=== PATIENT | female | born 1990 | race Two or more races ===

== ENCOUNTER 2018-01-14 06:52 | Emergency (ER) | payer OTHER ==
[2018-01-14 07:07] VITALS: BMI 23.4
--- NOTE | 2018-01-14 07:39 | PDOC ---
History of Present Illness <Evy Sanchez - Last Filed: 01/14/18 11:42> - History of Present Illness Initial Comments: 01/14/18 09:05 The patient is a 27 year old Iranian speaking female with no significant PMHx of , who presents for lower abdominal pain and vaginal bleeding since yesterday. The patient also notes some nausea and vomiting. Her LMP was December 04. She states she took Tylenol with little relief. She denies fever chills, chest pain, shortness of breath. She denies headache. She denies any urinary complaints. <Marjorie Churchill - Last Filed: 01/14/18 12:05> - General Chief Complaint: Pain Stated Complaint: ABD PAIN Time Seen by Provider: 01/14/18 07:39 Past History - Past Medical History COPD: No - Suicide/Smoking/Psychosocial Hx Smoking History: Never smoked <Evy Sanchez - Last Filed: 01/14/18 11:42> <Marjorie Churchill - Last Filed: 01/14/18 12:05> - Past Medical History Allergies/Adverse Reactions: Allergies Allergy/AdvReac Type Severity Reaction Status Date / Time No Known Allergies Allergy Verified 01/14/18 07:05 Home Medications: Ambulatory Orders NK [No Known Home Medication] 01/14/18 Review of Systems - Review of Systems Comments:: GENERAL/CONSTITUTIONAL: No fever or chills. No weakness. HEAD, EYES, EARS, NOSE AND THROAT: No change in vision. No ear pain or discharge. No sore throat. CARDIOVASCULAR: No chest pain or shortness of breath. RESPIRATORY: No cough, wheezing, or hemoptysis. GASTROINTESTINAL: +lower abdominal pain, +nausea, +vomiting, no diarrhea or constipation. GYNECOLOGICAL: +vaginal bleeding GENITOURINARY: No dysuria, frequency, or change in urination. MUSCULOSKELETAL: No joint or muscle swelling or pain. No neck or back pain. SKIN: No rash NEUROLOGIC: No headache, vertigo, loss of consciousness, or change in strength/ sensation. ENDOCRINE: No increased thirst. No abnormal weight change. HEMATOLOGIC/LYMPHATIC: No anemia, easy bleeding, or history of blood clots. ALLERGIC/IMMUNOLOGIC: No hives or skin allergy. 01/14/18 09:06 <Marjorie Churchill - Last Filed: 01/14/18 12:05> *Physical Exam - Vital Signs Last Vital Signs Temp Pulse Resp BP Pulse Ox 97 F L 80 18 102/61 100 01/14/18 07:02 01/14/18 07:02 01/14/18 07:02 01/14/18 07:02 01/14/18 07:02 <Evy Sanchez - Last Filed: 01/14/18 11:42> - Vital Signs Last Vital Signs Temp Pulse Resp BP Pulse Ox 97 F L 80 18 102/61 100 01/14/18 07:02 01/14/18 07:02 01/14/18 07:02 01/14/18 07:02 01/14/18 07:02 - Physical Exam Comments: GENERAL: Awake, alert, and fully oriented, in no acute distress HEAD: No signs of trauma EYES: PERRLA, EOMI, sclera anicteric, conjunctiva clear LUNGS: Breath sounds equal, clear to auscultation bilaterally. No wheezes, and no crackles HEART: Regular rate and rhythm, normal S1 and S2, no murmurs, rubs or gallops ABDOMEN: Soft, non-distended, diffusely tender. No guarding, no rebound. No masses EXTREMITIES: Normal range of motion, no edema. No clubbing or cyanosis. No cords, erythema, or tenderness NEUROLOGICAL: Cranial nerves II through XII grossly intact. Normal speech, normal gait SKIN: Warm, Dry, normal turgor, no rashes or lesions noted. Pelvic exam: Trace blood in vaginal vault. Suprapubic and b/l adenexal tenderess , Closed OS. <Marjorie Churchill - Last Filed: 01/14/18 12:05> ED Treatment Course - LABORATORY CBC & Chemistry Diagram: 01/14/18 08:20 01/14/18 08:20 <Evy Sanchez - Last Filed: 01/14/18 11:42> - LABORATORY CBC & Chemistry Diagram: 01/14/18 08:20 01/14/18 08:20 - ADDITIONAL ORDERS Additional order review: Laboratory Results 01/14/18 07:35 Urine Color Ltyellow Urine Appearance Slcloudy Urine pH 8.0 Ur Specific [place] 1.019 Urine Protein Negative Urine Glucose (UA) Negative Urine Ketones Negative Urine Blood 3+ H Urine Nitrite Negative Urine Bilirubin Negative Urine Urobilinogen Negative Ur Leukocyte Esterase Negative Urine WBC (Auto) 8 Urine RBC (Auto) 4 Ur Epithelial Cells Moderate Urine Bacteria Few Hyaline Casts 1 Urine Mucus Rare Urine HCG, Qual Positive 01/14/18 08:20 RBC 3.73 MCV 93.6 MCHC 32.8 RDW 14.1 MPV 9.4 Neutrophils % 66.4 Lymphocytes % 19.7 Monocytes % 12.4 H Eosinophils % 1.0 Basophils % 0.5 - Medications Given in the ED: ED Medications Discontinued Medications Generic Name Dose Route Start Last Admin Trade Name Myranda PRN Reason Stop Dose Admin Ketorolac Tromethamine 30 mg 01/14/18 07:54 01/14/18 08:30 Toradol Injection - IVPUSH 01/14/18 07:55 Not Given ONCE ONE <Marjorie Churchill - Last Filed: 01/14/18 12:05> Medical Decision Making - Medical Decision Making 01/14/18 09:11 Pt presents to the ED complaining of vaginal bleeding and pelvic pain that began yesterday. Also complains of two episodes of nausea and vomiting. + lower abdominal tenderness and pelvic and adnexal tenderness on pelvic exam. positive U preg. the patient appears somewhat uncomfortable and I am quite concerned for ectopic. Will check stat pelvic US, quantiative BHCG, give pain control and reassess. 01/14/18 11:42 BHCG positive with B quant of 986. Patient extremely tender and uncomfortable on my initial exam. Official US shows no IUP, free fluid, R adnexal mass that has no flow and is inconsistent with ectopic as per radiology. BHCG 986. Case discussed with Dr. Camara, who has come to the ED to evaluate the patient. Patient is now much more comfortable and is desired. Dr. Camara feels it is safe for the patient to be discharged home and return to the ED for worsening symptoms. Patient will follow up in two days for repeat BHCG. Patient was instructed to return to the ED immediately for worsening pain, syncope, other new or worsening symptoms. 01/14/18 11:44 <Evy aSnchez - Last Filed: 01/14/18 11:42> *DC/Admit/Observation/Transfer - Discharge Dispostion Decision to Admit order: No <Evy Sanchez - Last Filed: 01/14/18 11:42> - Attestations Scribe Attestion: 01/14/18 09:09 Documentation prepared by Marjorie Churchill, acting as medical interpreter for Evy Sanchez MD. <Marjorie Churchill - Last Filed: 01/14/18 12:05> Diagnosis at time of Disposition: Threatened - Discharge Dispostion Disposition: HOME Condition at time of disposition: Good - Referrals Referrals: Isabel Shearer [Primary Care Provider] - Mily Morales MD [Staff Physician] - - Patient Instructions Printed Discharge Instructions: DI for Threatened Additional Instructions: Return immediately to the ED for severe abdominal pain, passing out, feeling lightheaded, other new or worsening symptoms. You may have a in the wrong place, which could cause severe bleeding. YOU MUST see Dr. Morales or return to the ED on Monday. Print Language: HONDURAN - Post Discharge Activity
[2018-01-14] MEDS ORDERED: KETOROLAC TROMETHAMINE 30 MG/1 ML VIAL IVPUSH ONE (07:54)
[2018-01-14 08:25] LABS: HCG,QUALITATIVE URINE POSITIVE
[2018-01-14 08:32] LABS: URINE APPEARANCE SLCLOUDY; URINE BILIRUBIN NEGATIVE (<2.0 mg/dL); URINE COLOR LTYELLOW; URINE GLUCOSE (UA) NEGATIVE (NEGATIVE); URINE KETONE NEGATIVE (NEGATIVE); URINE LEUK ESTERASE NEGATIVE (NEGATIVE); URINE NITRITE NEGATIVE (NEGATIVE); URINE PROTEIN NEGATIVE (NEGATIVE); URINE UROBILINOGEN NEGATIVE mg/dL (0.2-1.0)
[2018-01-14 08:43] LABS: EPI CELLS MODERATE /HPF (FEW); URINE BACTERIA FEW /hpf (NONE SEEN); URINE HYALINE CAST 1 /lpf; URINE MUCUS RARE
[2018-01-14 08:46] LABS: BASO % 0.5 % (0-2.0); HEMATOCRIT 34.9 % (32.4-45.2); HEMOGLOBIN 11.5 GM/dL (10.7-15.3); LYMPH % 19.7 % (8-40); MCH 30.7 pg (25.7-33.7); MCHC 32.8 g/dl (32.0-36.0); MEAN CELL VOLUME 93.6 fl (80-96); MEAN PLT VOLUME 9.4 fl (7.5-11.1); MONO % 12.4 % (3.8-10.2); NEUT % 66.4 % (42.8-82.8); PLATELET COUNT 218 K/MM3 (134-434); RBC 3.73 M/mm3 (3.60-5.2); RDW 14.1 % (11.6-15.6)
[2018-01-14] MEDS ORDERED: ACETAMINOPHEN INJECTION 100 ML IVPB ONE (09:01)
[2018-01-14 09:02] LABS: ALBUMIN 3.7 g/dl (3.4-5.0); ANION GAP 7 (8-16); BILIRUBIN,TOTAL 0.2 mg/dL (0.2-1.0); BLOOD UREA NITROGEN 10 mg/dL (7-18); CALCIUM 8.6 mg/dL (8.5-10.1); CHLORIDE 108 mmol/L (98-107); CO2 27 mmol/L (21-32); CREATININE 0.7 mg/dL (0.55-1.02); GLUCOSE,RANDOM 86 mg/dL (74-106); POTASSIUM 4.2 mmol/L (3.5-5.1); SGOT/AST 18 U/L (15-37); SGPT/ALT 21 U/L (12-78); SODIUM 142 mmol/L (136-145); TOT PROT 7.8 g/dl (6.4-8.2)
[2018-01-14 09:03] LABS: ALK PHOS 81 U/L (45-117)
[2018-01-14 11:04] VITALS: BP 95/61; PULSE 64; TEMP 98.4
--- NOTE | 2018-01-14 11:56 | CON.OBG ---
Consult Consult Specialty:: [employer] Referred by:: Dr. Sanchez Reason for Consultation:: Pelvic pain with chemical - History of Present Illness Chief Complaint: Pelvic pain History of Present Illness: 27 yo , LMP 11/24/17, presents to ER c/o lower abdominal pain. She admits to h/o ovarian cyst. Sonogram done and showed evidence of an adnexa mass. Bhcg is around 900mIU. is desired. - History Source History Provided By: Patient Limitations to Obtaining History: No Limitations - Past Medical History ...LMP: 11/24/17 ...: Yes ...: 1 ...Para: 0 Musculoskeletal: No: Chronic low back pain - Past Surgical History Past Surgical History: Yes: None - Alcohol/Substance Use Hx Alcohol Use: No History of Substance Use: reports: None - Smoking History Smoking history: Never smoked - Social History History of Recent Travel: No Home Medications - Allergies Allergies/Adverse Reactions: Allergies Allergy/AdvReac Type Severity Reaction Status Date / Time No Known Allergies Allergy Verified 01/14/18 07:05 - Home Medications Home Medications: Ambulatory Orders NK [No Known Home Medication] 01/14/18 Family Disease History - Family Disease History Family History: Unremarkable Review of Systems - Review of Systems Constitutional: reports: No Symptoms Eyes: reports: No Symptoms Neck: reports: No Symptoms Cardiovascular: reports: No Symptoms Respiratory: reports: No Symptoms Gastrointestinal: reports: No Symptoms Genitourinary: reports: Pain Neurological: reports: No Symptoms Hematology/Lymphatic: reports: No Symptoms Psychiatric: reports: No Symptoms Pain Intensity: 4 Physical Exam-[employer] Vital Signs: Vital Signs Temperature 98.4 F 01/14/18 11:03 Pulse Rate 64 01/14/18 11:03 Respiratory Rate 16 01/14/18 11:03 Blood Pressure 95/61 01/14/18 11:03 O2 Sat by Pulse Oximetry (%) 100 01/14/18 11:03 Constitutional: Yes: Well Nourished Eyes: Yes: WNL HENT: Yes: WNL Neck: Yes: WNL Respiratory: Yes: Regular Gastrointestinal: Yes: Normal Bowel Sounds Pelvis: Yes: Tenderness External Genitalia: Yes: Normal Vaginal Exam: Yes: Discharge (Pinkish) Cervix: Yes: Cerv Motion Tenderness Uterus: Yes: Normal Musculoskeletal: Yes: WNL Neurological: Yes: Alert, Oriented ...Motor Strength: WNL Psychiatric: Yes: Alert, Oriented Labs: CBC, BMP 01/14/18 08:20 01/14/18 08:20 Problem List - Problems (1) Chemical Code(s): O02.81 - INAPPROP CHG QUANTITAV HCG IN EARLY (2) Pelvic pain Code(s): R10.2 - PELVIC AND PERINEAL PAIN (3) Adnexal mass Code(s): N94.9 - UNSP COND ASSOC W FEMALE GENITAL ORGANS AND MENSTRUAL CYCLE Assessment/Plan Pelvic pain Chemical Adnexa mass R/O ectopic F/U in two days for repeat Bhcg Extensive discussion and counseling given to patient Return to ER if pain out of proportion
== END 2018-01-14 12:15 | disposition home or self-care (01) ==
LOC: JER 06:52
DX: O02.81 Inappropriate change in quantitative human chorionic gonadotropin (hCG) in early pregnancy (principal); R11.2 Nausea with vomiting, unspecified; R19.09 Other intra-abdominal and pelvic swelling, mass and lump; N94.89 Other specified conditions associated with female genital organs and menstrual cycle
CPT/HCPCS: 36415; 76817-TC; 80053; 81003; 81015; 84702; 84703; 85025; 86850; 86900; 86901; 99283-25

== ENCOUNTER 2018-01-21 14:49 | Emergency (ER) | payer OTHER ==
[2018-01-21 15:06] VITALS: BMI 19.3
--- NOTE | 2018-01-21 15:13 | PDOC ---
History of Present Illness - General Chief Complaint: Vaginal Bleeding Stated Complaint: VAGINAL BLEEING/ABD PAIN - History of Present Illness Initial Comments: 27 year old female with PMH of recent right sided tubal ectopic (s/p saplingectomy 4 days prior 01/17/18) presenting with vaginal bleeding, central pelvic pain, and left sided adnexal tenderness since the operation. Dr. Martinez performed the procedure on 01/17/18 without complication and the left ovary was noted to be fine. Patient states that her pain and bleeding have been gradually worsening since the procedure and she notes 3 soaked pads daily since the procedure along with some nausea. Denies fevers, chills, vomiting, lightheadedness, chest pain, diarrhea, rash, malodorous discharge, or other symptoms. 01/21/18 15:45 Past History - Past Medical History Allergies/Adverse Reactions: Allergies Allergy/AdvReac Type Severity Reaction Status Date / Time No Known Allergies Allergy Verified 01/21/18 15:06 Home Medications: Ambulatory Orders Ibuprofen [Motrin -] 600 mg PO QID #28 tablet 01/17/18 Ferrous Sulfate 325 mg PO BID #60 tablet 01/18/18 COPD: No - Reproductive History (#): 1 Para: 0 - Suicide/Smoking/Psychosocial Hx Smoking History: Never smoked Have you smoked in the past 12 months: No Information on smoking cessation initiated: No Hx Alcohol Use: No Drug/Substance Use Hx: No Substance Use Type: None Review of Systems - Review of Systems Constitutional: No: Chills, Diaphoresis, Fever, Loss of Appetite, Malaise, Unexplained wgt Loss Respiratory: No: Orthopnea, Shortness of Breath, SOB with Exertion Cardiac (ROS): No: Edema, Irregular Heart Rate ABD/GI: Yes: Nausea. No: Constipated, Rectal Bleeding, Vomiting : No: Dysuria, Discharge, Frequency, Flank Pain, Hematuria Musculoskeletal: No: Back Pain, Gout, Joint Pain, Joint Swelling Integumentary: No: Erythema, Flushing, Lesions, Lumps, Pallor Neurological: No: Headache, Numbness, Paresthesia, Pre-Existing Deficit Hematologic/Lymphatic: No: Anemia, Blood Clots, Easy Bleeding *Physical Exam - Vital Signs Last Vital Signs Temp Pulse Resp BP Pulse Ox 98.6 F 80 18 105/79 100 01/21/18 15:02 01/21/18 15:02 01/21/18 15:02 01/21/18 15:02 01/21/18 15:02 - Physical Exam General Appearance: Yes: Nourished, Appropriately Dressed. No: Apparent Distress HEENT: positive: EOMI, SHRADDHA, Normal ENT Inspection, Normal Voice Neck: positive: Trachea midline, Normal Thyroid, Supple. negative: Tender, Rigid Respiratory/Chest: positive: Lungs Clear, Normal Breath Sounds. negative: Chest Tender, Respiratory Distress, Accessory Muscle Use Cardiovascular: positive: Regular Rhythm, Regular Rate Female Pelvic Exam: positive: CMT. negative: normal external exam (Dark dried blood at vaginal opening. Slight blood pooling in the posterior vaginal vault without visualized cervix. Cervix palpated and closed. Left adnexal tendreenss and cervical motion tenderness but no right adnexal tenderss or fullness. ), normal adnexa Gastrointestinal/Abdominal: positive: Normal Bowel Sounds, Flat, Soft. negative : Tender Musculoskeletal: positive: Normal Inspection. negative: Decreased Range of Motion Extremity: positive: Normal Capillary Refill, Normal Inspection, Normal Range of Motion. negative: Tender Integumentary: positive: Normal Color, Dry, Warm Neurologic: positive: Fully Oriented, Alert, Normal Mood/Affect, Normal Response , Motor Strength 5/5 ED Treatment Course - LABORATORY CBC & Chemistry Diagram: 01/21/18 15:56 01/21/18 15:56 Medical Decision Making - Medical Decision Making 27 year old female with recent right saplingectomy presenting with vaginal bleeding and pelvic + left adnexal tenderness. Highest suspcicion for post op pain and/or regular menses.. However, slight chance of retained products/ new pathology in left ovary although surgical report pointed to a grossly normal left adnexa. 01/21/18 17:28 WBC improved from preop and other labs WNL. Ultrasound demonstrating debris in uterus consistent with initiation of menses. Will DC patient with return precautions and follow up instructions. 01/21/18 18:29 *DC/Admit/Observation/Transfer Diagnosis at time of Disposition: Vaginal bleeding - Discharge Dispostion Disposition: HOME Condition at time of disposition: Improved Decision to Admit order: No - Referrals Referrals: Isabel Shearer [Primary Care Provider] - Michael Martinez MD [Staff Physician] - - Patient Instructions Additional Instructions: Silva sangrado vaginal y clicos probablemente provengan de silva operacin reciente y posiblemente de silva menstruacin. Por favor, siga con el Dr. Manzanon dentro de bennett semana. Debera mejorar en los prximos hayes. Por favor regrese al ED si tiene algn problema de empeoramiento. - Post Discharge Activity
[2018-01-21] MEDS ORDERED: MORPHINE SULFATE 2 MG/ML VIAL IVPUSH ONE (15:47)
[2018-01-21] MEDS ORDERED: MORPHINE SULFATE 2 MG/ML VIAL ONE (15:57)
[2018-01-21 16:09] LABS: BASO % 0.3 % (0-2.0); EOS % 0.9 % (0-4.5); HEMATOCRIT 30.3 % (32.4-45.2); LYMPH % 15.9 % (8-40); MCH 30.9 pg (25.7-33.7); MEAN CELL VOLUME 93.5 fl (80-96); MEAN PLT VOLUME 7.9 fl (7.5-11.1); MONO % 6.8 % (3.8-10.2); NEUT % 76.1 % (42.8-82.8); PLATELET COUNT 275 K/MM3 (134-434); RBC 3.24 M/mm3 (3.60-5.2); RDW 14.1 % (11.6-15.6); WHITE BLOOD COUNT 12.4 K/mm3 (4.0-10.0)
[2018-01-21 16:26] LABS: ALBUMIN 3.6 g/dl (3.4-5.0); ANION GAP 7 (8-16); BILIRUBIN,TOTAL 0.3 mg/dL (0.2-1.0); BLOOD UREA NITROGEN 10 mg/dL (7-18); CALCIUM 8.4 mg/dL (8.5-10.1); CHLORIDE 107 mmol/L (98-107); CO2 26 mmol/L (21-32); CREATININE 0.7 mg/dL (0.55-1.02); GLUCOSE,RANDOM 82 mg/dL (74-106); POTASSIUM 4.5 mmol/L (3.5-5.1); SGOT/AST 17 U/L (15-37); SGPT/ALT 19 U/L (12-78); SODIUM 140 mmol/L (136-145); TOT PROT 7.5 g/dl (6.4-8.2)
[2018-01-21 16:29] LABS: ALK PHOS 73 U/L (45-117)
[2018-01-21 16:58] LABS: URINE APPEARANCE CLEAR; URINE BILIRUBIN NEGATIVE (<2.0 mg/dL); URINE COLOR STRAW; URINE GLUCOSE (UA) NEGATIVE (NEGATIVE); URINE KETONE NEGATIVE (NEGATIVE); URINE LEUK ESTERASE NEGATIVE (NEGATIVE); URINE NITRITE NEGATIVE (NEGATIVE); URINE PROTEIN NEGATIVE (NEGATIVE); URINE UROBILINOGEN NEGATIVE mg/dL (0.2-1.0)
[2018-01-21 17:01] LABS: EPI CELLS RARE /HPF (FEW)
--- NOTE | 2018-01-21 17:30 | PDOC ---
Attending Attestation - Resident Resident Name: Randy Kaye - ED Attending Attestation I have performed the following: I have examined & evaluated the patient, The case was reviewed & discussed with the resident, I agree w/resident's findings & plan, Exceptions are as noted - HPI HPI: 01/21/18 17:29 The patient is a 27 year old female, with a significant PMH of recent right sided tubal ectopic (salpingectomy 4 days prior 01/17/18), who presents to the emergency department with vaginal bleeding, central pelvic pain and left sided adnexal tenderness since her operation. Patient notes the use of 3 soaked pads daily since the procedure accompanied with some nausea. Patient states pain and bleeding have progressively worsened since the procedure. The patient denies chest pain, shortness of breath, headache and dizziness. Denies fever, chills, nausea, vomit, diarrhea and constipation. Denies dysuria, frequency and urgency Allergies: NKDA Past surgical history: Salpingectomy Social history: None reported PCP: Isabel Shearer - Physicial Exam PE: 01/21/18 18:38 agree with resident exam - Medical Decision Making 01/21/18 16:38 27yo F s/p ectopic resection 2 days ago presents to the ED with vaginal bleeding and L pelvic pain. VItals wnl. Case discussed with Dr. Valdez by Dr. Kaye, who recommends TVUS but states sxs likely expected in post op period. If US with no acute pathology, pt can be DC to f/u outpt
--- NOTE | 2018-01-21 17:53 | PDOC ---
*Physical Exam - Vital Signs Last Vital Signs Temp Pulse Resp BP Pulse Ox 98.6 F 80 18 105/79 100 01/21/18 15:02 01/21/18 15:02 01/21/18 15:02 01/21/18 15:02 01/21/18 15:02 ED Treatment Course - LABORATORY CBC & Chemistry Diagram: 01/21/18 15:56 01/21/18 15:56 - ADDITIONAL ORDERS Additional order review: Laboratory Results 01/21/18 01/21/18 01/21/18 16:54 15:56 15:56 Sodium 140 Potassium 4.5 Chloride 107 Carbon Dioxide 26 Anion Gap 7 L BUN 10 Creatinine 0.7 Creat Clearance w eGFR > 60 Random Glucose 82 Calcium 8.4 L Total Bilirubin 0.3 AST 17 ALT 19 Alkaline Phosphatase 73 Total Protein 7.5 Albumin 3.6 Beta HCG, Quant 928.7 Urine Color Straw Urine Appearance Clear Urine pH 8.0 D Ur Specific [place] 1.010 Urine Protein Negative Urine Glucose (UA) Negative Urine Ketones Negative Urine Blood 3+ H Urine Nitrite Negative Urine Bilirubin Negative Urine Urobilinogen Negative Ur Leukocyte Esterase Negative Urine WBC (Auto) 8 Urine RBC (Auto) 103 Ur Epithelial Cells Rare Blood Type O POSITIVE Antibody Screen Negative 01/21/18 15:56 RBC 3.24 L MCV 93.5 MCHC 33.0 RDW 14.1 MPV 7.9 Neutrophils % 76.1 D Lymphocytes % 15.9 D Monocytes % 6.8 Eosinophils % 0.9 Basophils % 0.3 - Medications Given in the ED: ED Medications Discontinued Medications Generic Name Dose Route Start Last Admin Trade Name Freq PRN Reason Stop Dose Admin Morphine Sulfate 2 mg 01/21/18 15:47 01/21/18 16:01 Morphine Sulfate IVPUSH 01/21/18 15:48 2 mg ONCE ONE Administration Medical Decision Making - Medical Decision Making 01/21/18 17:51signed out by Dr Ewing to follow ultrasound pt had ectopic preg removed by Dr Martinez last week and p/w left sided adnexal pain 01/21/18 18:27 pelvic US c/s menstrual cycle plan follow up with Dr Kelley *DC/Admit/Observation/Transfer Diagnosis at time of Disposition: Vaginal bleeding - Discharge Dispostion Disposition: HOME Condition at time of disposition: Improved - Referrals Referrals: Michael Martinez MD [Staff Physician] - Tayo Sheareria A [Primary Care Provider] - - Patient Instructions Additional Instructions: Silva sangrado vaginal y clicos probablemente provengan de silva operacin reciente y posiblemente de silva menstruacin. Por favor, siga con el Dr. Manzanon dentro de bennett semana. Debera mejorar en los prximos hayes. Por favor regrese al ED si tiene algn problema de empeoramiento. - Post Discharge Activity
[2018-01-21 18:53] VITALS: BP 108/76; PULSE 72; TEMP 98.1
== END 2018-01-21 18:54 | disposition home or self-care (01) ==
LOC: JER 14:49
PROC: 3E033NZ Introduction of Analgesics, Hypnotics, Sedatives into Peripheral Vein, Percutaneous Approach (ICD-10-PCS; principal; 2018-01-21)
DX: N99.820 Postprocedural hemorrhage of a genitourinary system organ or structure following a genitourinary system procedure (principal); N92.0 Excessive and frequent menstruation with regular cycle
CPT/HCPCS: 36415; 76830-TC; 80053; 81003; 81015; 84702; 85025; 86850; 86900; 86901; 87491; 87591; 96374; 99283-25

== ENCOUNTER → 2018-12-13 | Day surgery (SDC) | payer OTHER | END | disposition home or self-care (01) | LOC: EDSTATUS 10:00 → JRAD 11:22 → JRADUS-SUR 11:22 | PROVIDERS: ATTEND Student in an Organized Health Care Education/Training Program | PROC: BU18YZZ Fluoroscopy of Uterus and Fallopian Tubes using Other Contrast (ICD-10-PCS; principal; 2018-12-13) | DX: N97.9 Female infertility, unspecified (principal) | CPT/HCPCS: 58340; 74740-TC-FY; 76000-TC-FY; 84703 ==

== ENCOUNTER 2018-12-21 15:59 | Emergency (ER) | payer OTHER | END 2018-12-21 19:00 | disposition home or self-care (01) | LOC: JERFT 15:59 ==

== ENCOUNTER 2018-12-24 20:11 | Emergency (ER) | payer OTHER ==
--- NOTE | 2018-12-24 21:08 | PDOC ---
Rapid Medical Evaluation Time Seen by Provider: 12/24/18 21:05 Medical Evaluation: Allergies Allergy/AdvReac Type Severity Reaction Status Date / Time No Known Allergies Allergy Verified 12/21/18 16:38 12/24/18 21:05 This patient had brief in-person evaluation in triage cc: rabies vaccine day 3 denies fever or chills, states wound looks better than before PE: NAD unlabored breathing limping, tenderness of left thigh orders: rabies vaccine This patient will proceed to the Ed for further evaluation Discharge Disposition - Diagnosis Rabies, need for prophylactic vaccination against - Referrals - Patient Instructions - Post Discharge Activity
[2018-12-24 21:09] VITALS: BP 103/66; PULSE 75; TEMP 98.3; BMI 25.0
[2018-12-24] MEDS ORDERED: RABIES VACCINE (PCEC)/PF 2.5 UNIT/VIAL IM ONE ×2 (21:12→21:29)
--- NOTE | 2018-12-24 21:14 | PDOC ---
History of Present Illness - General Chief Complaint: Revisit,Rabies Injection Stated Complaint: RETURN FOR SHOT Time Seen by Provider: 12/24/18 21:05 History Source: Patient Exam Limitations: No Limitations - History of Present Illness Initial Comments: 12/24/18 21:09 28 year old female s/p bitten on left thigh by a dog, seen 3 days ago, here for day 3 of vaccine. Patient reports no fever or chills Timing/Duration: reports: other (3 days) Location: reports: extremities Respiratory Risk Factors: reports: no cause identified Associated Symptoms: reports: denies symptoms Past History - Travel Traveled outside of the country in the last 30 days: No Close contact w/someone who was outside of country & ill: No - Past Medical History Allergies/Adverse Reactions: Allergies Allergy/AdvReac Type Severity Reaction Status Date / Time No Known Allergies Allergy Verified 12/24/18 21:09 Home Medications: Ambulatory Orders Amoxicillin - [Amoxicillin 500mg Capsule -] 500 mg PO BID #14 capsule 03/21/18 Amoxicillin/Potassium Clav [Augmentin 875-125 Tablet] 1 each PO BID #14 tablet 12/21/18 COPD: No - Reproductive History (#): 1 Para: 0 - Suicide/Smoking/Psychosocial Hx Smoking History: Never smoked Have you smoked in the past 12 months: No Information on smoking cessation initiated: No Hx Alcohol Use: No Drug/Substance Use Hx: No Substance Use Type: None Review of Systems - Review of Systems Able to Perform ROS?: Yes Is the patient limited Mauritanian proficient: No Constitutional: No: Chills, Fever HEENTM: No: Ear Pain, Nose Congestion, Throat Pain, Dental Problems ABD/GI: No: Difficulty Swallowing, Nausea, Vomiting, Indigestion : No: Burning, Dysuria, Discharge, Testicular Swelling Musculoskeletal: No: Back Pain, Muscle Weakness Integumentary: Yes: Bruising, Erythema Neurological: No: Numbness, Tingling, Dizziness *Physical Exam - Vital Signs Last Vital Signs Temp Pulse Resp BP Pulse Ox 98.3 F 75 16 103/66 100 12/24/18 21:06 12/24/18 21:06 12/24/18 21:06 12/24/18 21:06 12/24/18 21:06 - Physical Exam General Appearance: Yes: Nourished, Appropriately Dressed. No: Apparent Distress HEENT: positive: TMs Normal, Pharynx Normal Neck: positive: Supple. negative: Lymphadenopathy (R), Lymphadenopathy (L) Respiratory/Chest: positive: Lungs Clear, Normal Breath Sounds Cardiovascular: positive: Regular Rhythm, Regular Rate Extremity: positive: Normal Capillary Refill, Erythema, Inflammation (of left thigh) Neurologic: positive: Fully Oriented, Alert Medical Decision Making - Medical Decision Making 12/24/18 21:11 28 year old female here for day 3 of rabies vaccine rabies vaccine *DC/Admit/Observation/Transfer Diagnosis at time of Disposition: Rabies, need for prophylactic vaccination against - Discharge Dispostion Disposition: HOME Condition at time of disposition: Good Decision to Admit order: No - Referrals - Patient Instructions Printed Discharge Instructions: DI for Rabies Vaccine Additional Instructions: Teja gallardo [facility] You may take ibuprofen 600 mg every 6 hours for pain You will need 2 more rabies vaccine. Please return in 4 day(12/28/18) for the next rabies vaccine. Continue to take Augmentin, antibiotics as prescribed. Return to emergency Department for fever chills or if symptoms worsens. Print Language: HONG KONGER - Post Discharge Activity Forms/Work/School Notes: Back to Work
== END 2018-12-24 21:42 | disposition home or self-care (01) ==
LOC: JERFT 20:11
PROC: 3E0234Z Introduction of Serum, Toxoid and Vaccine into Muscle, Percutaneous Approach (ICD-10-PCS; principal; 2018-12-24)
DX: Z20.3 Contact with and (suspected) exposure to rabies (principal)
CPT/HCPCS: 90471; 90675; 99281-25

== ENCOUNTER 2018-12-28 11:29 | Emergency (ER) | payer OTHER ==
[2018-12-28 11:38] VITALS: BP 105/69; PULSE 79; TEMP 98.2; BMI 25.0
--- NOTE | 2018-12-28 11:41 | PDOC ---
History of Present Illness - General Chief Complaint: Revisit,Rabies Injection Stated Complaint: F/U // RABIES SHOT Time Seen by Provider: 12/28/18 11:39 - History of Present Illness Initial Comments: 12/28/18 12:00 28 years old status post dog bite on routine patient met criteria for rabies vaccine rabies immunoglobulin and Augmentin Here for third shot of rabies vaccine Past History - Past Medical History Allergies/Adverse Reactions: Allergies Allergy/AdvReac Type Severity Reaction Status Date / Time No Known Allergies Allergy Verified 12/24/18 21:09 Home Medications: Ambulatory Orders Amoxicillin - [Amoxicillin 500mg Capsule -] 500 mg PO BID #14 capsule 03/21/18 Amoxicillin/Potassium Clav [Augmentin 875-125 Tablet] 1 each PO BID #14 tablet 12/21/18 COPD: No - Reproductive History (#): 1 Para: 0 - Suicide/Smoking/Psychosocial Hx Smoking History: Never smoked Have you smoked in the past 12 months: No Hx Alcohol Use: No Drug/Substance Use Hx: No Substance Use Type: None Review of Systems - Review of Systems Comments:: 12/28/18 12:28 ROS: A complete review of 10 out of 10 review of systems is taken and is negative apart from what is previously mentioned below and in the HPI. *Physical Exam - Vital Signs Last Vital Signs Temp Pulse Resp BP Pulse Ox 98.2 F 79 14 105/69 99 12/28/18 11:36 12/28/18 11:36 12/28/18 11:36 12/28/18 11:36 12/28/18 11:36 *DC/Admit/Observation/Transfer Diagnosis at time of Disposition: Rabies, need for prophylactic vaccination against - Discharge Dispostion Disposition: HOME Condition at time of disposition: Fair Decision to Admit order: No - Referrals Referrals: Isabel Shearer [Primary Care Provider] - - Patient Instructions Printed Discharge Instructions: DI for Rabies Vaccine Additional Instructions: Return to the ED on January 04 for your final rabies vaccine continue the Augmentin as prescribed. Keep a close eye on the dog bite apply bacitracin twice a day return to the ED immediately if it becomes red swollen hot signs of infection or for any concerns. - Post Discharge Activity
[2018-12-28] MEDS ORDERED: RABIES VACCINE (PCEC)/PF 2.5 UNIT/VIAL IM ONE ×2 (11:46→12:10)
== END 2018-12-28 12:43 | disposition home or self-care (01) ==
LOC: JERFT 11:29
PROC: 3E0234Z Introduction of Serum, Toxoid and Vaccine into Muscle, Percutaneous Approach (ICD-10-PCS; principal; 2018-12-28)
DX: Z20.3 Contact with and (suspected) exposure to rabies (principal)
CPT/HCPCS: 90675; 99281-25

== ENCOUNTER 2019-01-04 13:24 | Emergency (ER) | payer OTHER ==
[2019-01-04 13:36] VITALS: BP 121/75; PULSE 75; TEMP 97; BMI 20.9
[2019-01-04] MEDS ORDERED: RABIES VACCINE (PCEC)/PF 2.5 UNIT/VIAL IM ONE ×2 (13:41→13:48)
--- NOTE | 2019-01-04 13:41 | PDOC ---
Rapid Medical Evaluation Chief Complaint: Revisit,Rabies Injection Time Seen by Provider: 01/04/19 13:39 Medical Evaluation: Allergies Allergy/AdvReac Type Severity Reaction Status Date / Time No Known Allergies Allergy Verified 01/04/19 13:36 Vital Signs Temp Pulse Resp BP Pulse Ox 97.0 F L 75 16 121/75 100 01/04/19 13:33 01/04/19 13:33 01/04/19 13:33 01/04/19 13:33 01/04/19 13:33 01/04/19 13:40 I have performed a brief in-person evaluation of this patient. The patient presents with a chief complaint of: rabies vaccine Pertinent physical exam findings:stable and in NAD, non-focal I have ordered the following: rabies vaccine The patient will proceed to the ED for further evaluation.
--- NOTE | 2019-01-04 14:13 | PDOC ---
History of Present Illness - General Chief Complaint: Revisit,Rabies Injection Stated Complaint: RABIES VACCINE Time Seen by Provider: 01/04/19 13:39 History Source: Patient Exam Limitations: No Limitations - History of Present Illness Initial Comments: 01/04/19 14:14 28-year-old female with significant past medical history presenting for a rabies vaccine, patient sustained a dog bite 2 weeks ago with a course of Augmentin and has had 3 prior rabies vaccinations. The patient has no complaints states that her legs feeling better no CVA, chills, excessive thirst , redness from the wound or other concerns. ROS: General: denies fever/chills Abd: denies n/v SkinL Denies redness/swelling/increased pain Exam: Skin: wound on thigh is healing well without any erythema/induration/fluctuance or discharge Pt given final Rabies vaccine will dc wiht pmd fu Past History - Past Medical History Allergies/Adverse Reactions: Allergies Allergy/AdvReac Type Severity Reaction Status Date / Time No Known Allergies Allergy Verified 01/04/19 13:36 Home Medications: Ambulatory Orders Amoxicillin - [Amoxicillin 500mg Capsule -] 500 mg PO BID #14 capsule 03/21/18 Amoxicillin/Potassium Clav [Augmentin 875-125 Tablet] 1 each PO BID #14 tablet 12/21/18 COPD: No - Reproductive History (#): 1 Para: 0 - Suicide/Smoking/Psychosocial Hx Smoking History: Never smoked Have you smoked in the past 12 months: No Information on smoking cessation initiated: No Hx Alcohol Use: No Drug/Substance Use Hx: No Substance Use Type: None *Physical Exam - Vital Signs Last Vital Signs Temp Pulse Resp BP Pulse Ox 97.0 F L 75 16 121/75 100 01/04/19 13:33 01/04/19 13:33 01/04/19 13:33 01/04/19 13:33 01/04/19 13:33 ED Treatment Course - Medications Given in the ED: ED Medications Discontinued Medications Generic Name Dose Route Start Last Admin Trade Name Freq PRN Reason Stop Dose Admin Rabies Vaccine 2.5 unit 01/04/19 13:41 01/04/19 13:52 Rabavert Rabies Vaccine IM 01/04/19 13:42 2.5 unit .ONCE ONE Administration *DC/Admit/Observation/Transfer Diagnosis at time of Disposition: Need for rabies vaccination - Discharge Dispostion Disposition: HOME Condition at time of disposition: Improved Decision to Admit order: No - Referrals Referrals: [facility] [place] [Provider Group] - Patient Instructions Printed Discharge Instructions: DI for Rabies Vaccine Additional Instructions: Return to the emergency department immediately with ANY new, persistent or worsening symptoms including any redness on your wound or other concerns. Regrese al departamento de emergencias de inmediato con CUALQUIER sntoma nuevo , persistente o que empeore, incluido enrojecimiento de la herida u otras inquietudes. Print Language: MALDIVIAN - Post Discharge Activity
== END 2019-01-04 14:16 | disposition home or self-care (01) ==
LOC: JERFT 13:24
PROC: 3E0234Z Introduction of Serum, Toxoid and Vaccine into Muscle, Percutaneous Approach (ICD-10-PCS; principal; 2019-01-04)
DX: Z20.3 Contact with and (suspected) exposure to rabies (principal)
CPT/HCPCS: 90471; 90675; 99281-25

== ENCOUNTER 2020-03-22 13:39 | Emergency (ER) | payer OTHER ==
[2020-03-22 13:53] VITALS: BP 109/68; PULSE 71; TEMP 97.4; BMI 23.6
--- NOTE | 2020-03-22 14:20 | PDOC ---
History of Present Illness - General Chief Complaint: Pain Stated Complaint: LT. ARM PAIN Time Seen by Provider: 03/22/20 14:07 History Source: Patient Exam Limitations: No Limitations (L pectoral muscle pain radiating to arm X 1 day, denies trauma, pain only when she palpates) - History of Present Illness Associated Symptoms: denies: chest pain, fever/chills, headaches, loss of appetite, malaise, nausea/vomiting, shortness of breath, weakness Past History - Travel History Traveled outside of the country in the last 30 days: No - Medical History Allergies/Adverse Reactions: Allergies Allergy/AdvReac Type Severity Reaction Status Date / Time No Known Allergies Allergy Verified 03/22/20 13:53 Home Medications: Ambulatory Orders Amoxicillin - [Amoxicillin 500mg Capsule -] 500 mg PO BID #14 capsule 03/21/18 Amoxicillin/Potassium Clav [Augmentin 875-125 Tablet] 1 each PO BID #14 tablet 12/21/18 COPD: No - Reproductive History Is Patient Now?: No (#): 1 Para: 0 - Psycho-Social/Smoking History Smoking History: Never smoked Have you smoked in the past 12 months: No - Substance Abuse Hx (Audit-C & DAST Scrn) How often the patient has a drink containing alcohol: Never Score: In Men: 4 or > Positive; In Women: 3 or > Positive: 0 Screen Result (Pos requires Nsg. Audit-10AR): Negative Review of Systems - Review of Systems Constitutional: No: Chills, Fever Respiratory: No: Orthopnea, Shortness of Breath, SOB with Exertion, SOB at Rest, Wheezing, Productive cough Cardiac (ROS): No: Chest Pain, Edema, Irregular Heart Rate, Lightheadedness, Palpitations, Syncope, Chest Tightness ABD/GI: No: Nausea, Vomiting Musculoskeletal: Yes: Muscle Pain. No: Joint Pain, Muscle Weakness, Neck Pain, Joint Stiffness Neurological: No: Headache, Numbness, Tingling, Tremors, Weakness, Dizziness *Physical Exam - Vital Signs Last Vital Signs Temp Pulse Resp BP Pulse Ox 97.4 F L 71 18 109/68 99 03/22/20 13:51 03/22/20 13:51 03/22/20 13:51 03/22/20 13:51 03/22/20 13:51 - Physical Exam General Appearance: Yes: Nourished HEENT: positive: EOMI, SHRADDHA Neck: positive: Supple Respiratory/Chest: positive: Lungs Clear, Normal Breath Sounds Cardiovascular: positive: Regular Rhythm, Regular Rate, S1, S2 Musculoskeletal: positive: Normal Inspection, Other (tenderness on palpation over left pectoral muscle, no rash) Integumentary: positive: Normal Color Neurologic: positive: rotary shear cutter II-XII NML intact, Fully Oriented, Alert, Normal Mood/Affect, Normal Response, Motor Strength 5/5 Medical Decision Making - Medical Decision Making 29y/o F no prior medical history with muscle tenderness over left pectoral muscl e when she lift her arm up since yesterday denies cough, rash, SOB, CP, arm weakness, n/v 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 Vital signs stable. Exam consist of tenderness when palpation of left pectoral muscle. There is no rash. Range of motion was intact in bilateral upper extremity credit verification clerk strength is intact. EKG there is no acute ST T wave findings. Patient given Motrin. Diagnoses most more musculoskeletal pain. Patient advised to stretch take ibuprofen as needed for pain. She was advised to return to the emergency room if pain persists or worsening symptoms is accompanied. Discharge - Discharge Information Problems reviewed: Yes Clinical Impression/Diagnosis: Chest wall pain Condition: Stable Disposition: HOME - Admission No - Additional Discharge Information Prescription Drug Monitoring Program (I-STOP) results: I-STOP not reviewed - Follow up/Referral Referrals: René Mahajan MD [Primary Care Provider] - - Patient Discharge Instructions Patient Printed Discharge Instructions: DI for Costochondritis Additional Instructions: Your exam today in the emergency room was consistent with musculoskeletal pain in the chest wall. You may take Motrin or Tylenol for the pain. Stretch muscle after heavy lifting. Your EKG did not show any acute findings. You may follow-up with your primary care doctor. Return to the emergency room if worsening symptoms occur. - Post Discharge Activity
[2020-03-22] MEDS ORDERED: IBUPROFEN 600 MG TABLET (FP) PO ONE ×2 (14:47→14:48)
--- NOTE | 2020-03-23 10:43 | EKG ---
Test Reason : Blood Pressure : / mmHG Vent. Rate : 056 BPM Atrial Rate : 056 BPM P-R Int : 132 ms QRS Dur : 084 ms QT Int : 406 ms P-R-T Axes : 031 046 019 degrees QTc Int : 391 ms SINUS BRADYCARDIA OTHERWISE NORMAL ECG NO PREVIOUS ECGS AVAILABLE Confirmed by OCTAVIANO KRAUS MD ([id number]) on 03/23/2020 10:43:17 AM Referred By: Confirmed By:OCTAVIANO KRAUS MD
--- NOTE | 2020-03-24 14:05 | EKG ---
Test Reason : Blood Pressure : / mmHG Vent. Rate : 056 BPM Atrial Rate : 056 BPM P-R Int : 132 ms QRS Dur : 084 ms QT Int : 406 ms P-R-T Axes : 031 046 019 degrees QTc Int : 391 ms SINUS BRADYCARDIA OTHERWISE NORMAL ECG NO PREVIOUS ECGS AVAILABLE Confirmed by Chilango Werner MD ([id number]) on 03/24/2020 2:05:04 PM Referred By: Confirmed By:Chilango Werner MD
== END 2020-03-22 15:09 | disposition home or self-care (01) ==
LOC: JERFT 13:39
DX: R07.9 Chest pain, unspecified (principal)
CPT/HCPCS: 93005; 93010; 99283-25

== ENCOUNTER 2020-04-27 15:27 | Emergency (ER) | payer OTHER ==
[2020-04-27 15:49] VITALS: BP 116/73; PULSE 74; TEMP 98.1; BMI 23.3
--- NOTE | 2020-04-27 15:50 | PDOC ---
Rapid Medical Evaluation Time Seen by Provider: 04/27/20 15:47 Medical Evaluation: Allergies Allergy/AdvReac Type Severity Reaction Status Date / Time No Known Allergies Allergy Verified 04/27/20 15:47 04/27/20 15:47 I have performed a brief in-person evaluation of this patient. The patient presents with a chief complaint of: ? vaginal swelling x 2 days Pertinent physical exam findings:stable, well wanda I have ordered the following:nothing The patient will proceed to the ED for further evaluation. Discharge Disposition - Diagnosis Swelling of vagina - Referrals - Patient Instructions - Post Discharge Activity
--- OUTSIDE RECORDS SUMMARY | 2020-04-27 15:59 | XMS ---
:1990 Author Organization [facility] Care Team Providers Name Role Phone Dary Leon MD Unavailable Unavailable Charley Leon MD Unavailable Unavailable Charley Leon MD Unavailable Unavailable Charley Leon MD Unavailable Unavailable Charley Leon MD Unavailable Unavailable Charley Leon MD Unavailable Unavailable Charley Leon MD Unavailable Unavailable Charley Leon MD Unavailable Unavailable Charley Leon MD Unavailable Unavailable Charley Leon MD Unavailable Unavailable Charley Leon MD Unavailable Unavailable Charley Leon MD Unavailable Unavailable Charley Leon MD Unavailable Unavailable Charley Leon MD Unavailable Unavailable Charley Leon MD Unavailable Unavailable Re-disclosure Warning The records that you are about to access may contain information from federally- assisted alcohol or drug abuse programs. If such information is present, then the following federally mandated warning applies: This information has been disclosed to you from records protected by federal confidentiality rules (42 CFR part 2). The federal rules prohibit you from making any further disclosure of this information unless further disclosure is expressly permitted by the written consent of the person to whom it pertains or as otherwise permitted by 42 CFR part 2. A general authorization for the release of medical or other information is NOT sufficient for this purpose. The Federal rules restrict any use of the information to criminally investigate or prosecute any alcohol or drug abuse patient.The records that you are about to access may contain highly sensitive health information, the redisclosure of which is protected by Article 27-F of the [facility] Public Health law. If you continue you may haveaccess to information: Regarding HIV / AIDS; Provided by facilities licensed or operated by the [facility] Office of Mental Health; or Provided by the [facility] Office for People With Developmental Disabilities. If such information is present, then the following [facility] mandated warning applies: This information has been disclosed to you from confidential records which are protected by state law. State law prohibits you from making any further disclosure of this information without the specific written consent of the person to whom it pertains, or as otherwise permitted by law. Any unauthorized further disclosure in violation of state law may result in a fine or fci sentence or both. A general authorization for the release of medical or other information is NOT sufficient authorization for further disclosure. Encounters Encounter Providers Location Date Indications Data Source(s ) Attender: [facility] 05/27/2019 ALVAREZ [place] ([facility] 02:36:00 PM [facility] EST - Center) 05/27/2019 02:36:00 PM EST Outpatient [facility] 05/09/2019 eCW3 ([facility] 12:[facility]:00 [facility]) 05/09/2019 12:00:00 AM EDT Outpatient [facility] 04/15/2019 eCW3 ([facility] 12:00:00 [facility] - [facility]) 04/15/2019 12:00:00 AM EDT Outpatient [facility] 03/12/2019 eCW3 ([facility] 12:00:00 [facility] - [facility]) 03/12/2019 12:00:00 AM EDT Immunizations Vaccine Date Status Description Data Source(s) New in 2011. IIV4 04/15/2019 02:09:00 completed eC W3 ([facility]) New in 2011. IIV4 04/15/2019 02:09:00 completed [facility] Medications Medication Brand Start Product Dose Route Administrative Pharmacy [facility] Indications Reaction Description Data Name Date Form Instructions Instructions Source(s) Clomiphene ClomiP .0 active ClomiPHE NE eCW3 Citrate 50 2019 {tabl Citrate 50 ([facility] Oral Citrat 12:00: et} [facility] Tablet e 50 00 [facility] ClomiPHENE [facility] EST Care) Citrate 50 MG Clomiphene ClomiP .0 active ClomiPHE NE eCW3 Citrate 50 2019 {tabl Citrate 50 ([facility] Oral Citrat 12:00: et} [facility] Tablet e 50 00 [facility] ClomiPHENE MG EST Care) Citrate 50 MG Clomiphene ClomiP .0 active ClomiPHE NE eCW3 Citrate 50 2019 {tabl Citrate 50 ([facility] Oral Citrat 12:00: et} [facility] Tablet e 50 00 [facility] ClomiPHENE MG EST Care) Citrate 50 MG Clomiphene ClomiP 0 active ClomiPHE NE eCW3 Citrate 50 2019 {tabl Citrate 50 ([facility] Oral Citrat 12:00: et} [facility] Tablet e 50 00 [facility] ClomiPHENE MG EST Care) Citrate 50 MG Clomiphene ClomiP .0 active ClomiPHE NE eCW3 Citrate 50 2019 {tabl Citrate 50 ([facility] Oral Citrat 12:00: et} [facility] Tablet e 50 00 [facility] ClomiPHENE MG EST Care) Citrate 50 MG Clomiphene ClomiP .0 active ClomiPHE NE eCW3 Citrate 50 2018 {tabl Citrate 50 ([facility] Oral Citrat 12:00: et} [facility] Tablet e 50 00 [facility] ClomiPHENE MG EST Care) Citrate 50 MG Clomiphene ClomiP .0 active ClomiPHE NE eCW3 Citrate 50 2018 {tabl Citrate 50 ([facility] Oral Citrat 12:00: et} [facility] Tablet e 50 00 [facility] ClomiPHENE MG EST Care) Citrate 50 MG Clomiphene ClomiP .0 active ClomiPHE NE eCW3 Citrate 50 2018 {tabl Citrate 50 ([facility] Oral Citrat 12:00: et} [facility] Tablet e 50 00 [facility] ClomiPHENE MG EST Care) Citrate 50 MG Clomiphene ClomiP .0 active ClomiPHE NE eCW3 Citrate 50 2018 {tabl Citrate 50 ([facility] Oral Citrat 12:00: et} [facility] Tablet e 50 00 [facility] Clomi[facility] MG EST Care) Citrate 50 MG Clomiphene ClomiP .0 active ClomiPHE NE eCW3 Citrate 50 2018 {tabl Citrate 50 ([facility] Oral Citrat 12:00: et} [facility] Tablet e 50 00 [facility] ClomiPHENE [facility] EST Care) Citrate 50 MG Insurance Providers Payer name Policy type Policy ID Covered Covered republican's Policy P christina / Coverage republican ID relationship to Loco Inf ormation type loco MVP ESSENTIAL [id number] SP [id number] PLAN 3 4 MEDICAID [id number] SP [id number] MVP O [id number] ESSENTIALS-CO MMERCIAL Social History Code Duration Value Status Description Data Source(s ) Smoking 02/17/2020 12:00:00 Never Smoker completed Never Smoker e CW3 ([facility]) Smoking 02/17/2020 12:00:00 Never Smoker completed Never Smoker e CW3 ([facility]) Smoking 08/21/2019 12:00:00 Never Smoker completed Never Smoker e CW3 ([facility]) Smoking 08/21/2019 12:00:00 Never Smoker completed Never Smoker e CW3 ([facility]) Smoking 08/21/2019 12:00:00 Never Smoker completed Never Smoker e CW3 ([facility]) Smoking 05/09/2019 12:00:00 Never Smoker completed Never Smoker e CW3 ([facility]) Vital Signs ID Date Data Source UNK Name Value Range Interpretation Code Description Data Source(s) Diastolic blood 62 mm[Hg] 62 mm[Hg] eCW3 ([facility]) Systolic blood 104 mm[Hg] 104 mm[Hg] eCW3 ([facility]) Body temperature 98.5 [degF] 98.5 [degF] eCW3 ( [facility]) Heart rate 20 /min 20 /min eCW3 ([facility]) Body mass index 25.15 kg/m2 25.15 kg/m2 eCW3 ([facility] (BMI) [Ratio] [facility]) Body weight 142 [lb_av] 142 [lb_av] eCW3 ([facility]) Body height 63 [in_i] 63 [in_i] eCW3 ([facility]) Diastolic blood 75 mm[Hg] 75 mm[Hg] eCW3 ([facility]) Systolic blood 109 mm[Hg] 109 mm[Hg] eCW3 ([facility]) Body temperature 98.4 [degF] 98.4 [degF] eCW3 ( [facility]) Heart rate 20 /min 20 /min eCW3 ([facility]) Body mass index 24.62 kg/m2 24.62 kg/m2 eCW3 ([facility] (BMI) [Ratio] [facility]) Body weight 139 [lb_av] 139 [lb_av] eCW3 ([facility]) Body height 63 [in_i] 63 [in_i] eCW3 ([facility]) Diastolic blood 80 mm[Hg] 80 mm[Hg] eCW3 ([facility]) Systolic blood 127 mm[Hg] 127 mm[Hg] eCW3 ([facility]) Body temperature 98.36 [degF] 98.36 [degF] eCW3 ([facility]) Heart rate 20 /min 20 /min eCW3 ([facility]) Body mass index 23.73 kg/m2 23.73 kg/m2 eCW3 ([facility] (BMI) [Ratio] [facility]) Body weight 134 [lb_av] 134 [lb_av] eCW3 ([facility]) Body height 63 [in_i] 63 [in_i] eCW3 ([facility]) Patient Treatment Plan of Care Planned Activity Planned Date Details Description Data Source (s) Clomiphene Citrate 50 08/21/2019 12:00:00 eCW3 ([facility] Oral Tablet [facility]) Clomiphene Citrate 50 08/21/2019 12:00:00 eCW3 ([facility] Oral Tablet [facility])
--- NOTE | 2020-04-27 16:41 | PDOC ---
History of Present Illness - General Chief Complaint: Abscess Boil Stated Complaint: VAGINAL PAIN Time Seen by Provider: 04/27/20 15:47 - History of Present Illness Initial Comments: 04/27/20 16:38 29-year-old female no comorbidities presents for evaluation of painful area on her left mons pubis x2 days. No systemic symptoms no drainage Past History - Medical History Allergies/Adverse Reactions: Allergies Allergy/AdvReac Type Severity Reaction Status Date / Time No Known Allergies Allergy Verified 04/27/20 15:47 Home Medications: Ambulatory Orders Amoxicillin - [Amoxicillin 500mg Capsule -] 500 mg PO BID #14 capsule 03/21/18 Amoxicillin/Potassium Clav [Augmentin 875-125 Tablet] 1 each PO BID #14 tablet 12/21/18 Cephalexin [Keflex] 500 mg PO QID #40 capsule 04/27/20 Sulfamethoxazole/Trimethoprim [Bactrim Ds -] 1 tab PO BID #14 tablet 04/27/20 COPD: No - Reproductive History Is Patient Now?: No (#): 1 Para: 0 - Immunization History Immunization Up to Date: No - Psycho-Social/Smoking History Smoking History: Never smoked Have you smoked in the past 12 months: No - Substance Abuse Hx (Audit-C & DAST Scrn) How often the patient has a drink containing alcohol: Never Score: In Men: 4 or > Positive; In Women: 3 or > Positive: 0 Screen Result (Pos requires Nsg. Audit-10AR): Negative In the last yr the pt used illegal drug/Rx for NonMed reason: No Score: Yes response is considered Positive: 0 Screen Result (Positive result requires Nsg. DAST-10): Negative Review of Systems - Review of Systems Integumentary: Yes: See HPI *Physical Exam - Vital Signs Last Vital Signs Temp Pulse Resp BP Pulse Ox 98.1 F 74 18 116/73 98 04/27/20 15:47 04/27/20 15:47 04/27/20 15:47 04/27/20 15:47 04/27/20 15:47 - Physical Exam 04/27/20 16:39 There is a firm tender nonfluctuant nonerythemic normal temperature area on the left area of the mons pubis just medial to the groin. Medical Decision Making - Medical Decision Making 04/27/20 16:39 Bactrim Keflex warm compresses follow-up with general surgery I have reviewed the pathophysiology with the patient. They are in agreement with the treatment plan all questions were answered to their satisfaction. Understanding for follow-up without fail was also conveyed to the patient. Again they are in agreement. 04/27/20 16:41 Patient assures me there is no chance of . Discharge - Discharge Information Problems reviewed: Yes Clinical Impression/Diagnosis: Abscess Clinical Impression/Diagnosis: (Ruled Out): Swelling of vagina Condition: Stable Disposition: HOME - Admission No - Follow up/Referral Referrals: Devon Deng MD [Staff Physician] - - Patient Discharge Instructions Additional Instructions: Tylenol Motrin as directed for pain. Return to the emergency room for worsening symptoms. Warm compresses multiple times a day as discussed. Please take the antibiotics as directed. Return to the emergency room for further issues and without fail follow-up with general surgery in 1 to 2 days for further evaluation and treatment options. - Post Discharge Activity
== END 2020-04-27 16:47 | disposition home or self-care (01) ==
LOC: JERFT 15:27
DX: L02.215 Cutaneous abscess of perineum (principal)
CPT/HCPCS: 99282-25

== ENCOUNTER 2020-12-27 01:09 | Emergency (ER) | payer OTHER ==
[2020-12-27 01:27] VITALS: BP 120/85; PULSE 76; TEMP 98.2; BMI 25.8
[2020-12-27] MEDS ORDERED: ACETAMINOPHEN 1000 MG/100 ML VIAL (NON FORMULARY) IVPB ONE (01:58)
[2020-12-27 02:03] LABS: BASO % 0.5 % (0-2.0); EOS % 1.1 % (0-4.5); HEMATOCRIT 34.2 % (32.4-45.2); HEMOGLOBIN 11.2 GM/dL (10.7-15.3); LYMPH % 29.4 % (8-40); MCH 27.3 pg (25.7-33.7); MCHC 32.9 g/dl (32.0-36.0); MEAN CELL VOLUME 83.2 fl (80-96); MEAN PLT VOLUME 7.8 fl (7.5-11.1); MONO % 10.1 % (3.8-10.2); NEUT % 58.9 % (42.8-82.8); PLATELET COUNT 299 10^3/uL (134-434); RBC 4.11 M/mm3 (3.60-5.2); RDW 16.2 % (11.6-15.6); WHITE BLOOD COUNT 8.3 K/mm3 (4.0-10.0)
[2020-12-27] MEDS ORDERED: ACETAMINOPHEN INJECTION 100 ML IVPB ONE (02:17)
[2020-12-27 02:20] LABS: ALBUMIN 3.6 g/dl (3.4-5.0); CALCIUM 9.2 mg/dL (8.5-10.1)
[2020-12-27 02:21] LABS: BLOOD UREA NITROGEN 9.4 mg/dL (7-18)
[2020-12-27 02:25] LABS: BILIRUBIN,TOTAL 0.2 mg/dL (0.2-1); TOT PROT 8.3 g/dl (6.4-8.2)
[2020-12-27 02:30] LABS: CREATININE 0.7 mg/dL (0.55-1.3)
[2020-12-27 05:09] LABS: HCG,QUALITATIVE URINE Negative
[2020-12-27 05:10] LABS: EPI CELLS 9 /uL (0-25.1); HYALINE CASTS 0 /uL (0-3.1); PH,URINE 6.5 (5.0-8.0); URINE APPEARANCE CLEAR; URINE BACTERIA 45 /uL (0-1359); URINE BILIRUBIN NEGATIVE (NEGATIVE); URINE COLOR YELLOW; URINE GLUCOSE (UA) NEGATIVE (NEGATIVE); URINE KETONE NEGATIVE (NEGATIVE); URINE LEUK ESTERASE TRACE (NEGATIVE); URINE NITRITE NEGATIVE (NEGATIVE); URINE PROTEIN NEGATIVE (NEGATIVE); URINE RBC 806 /uL (0-23.9); URINE UROBILINOGEN 0.2 mg/dL (0.2-1.0); URINE WBC 19 /uL (0-25.8)
== END 2020-12-27 05:33 | disposition home or self-care (01) ==
LOC: JER 01:09
PROC: 3E0333Z Introduction of Anti-inflammatory into Peripheral Vein, Percutaneous Approach (ICD-10-PCS; principal; 2020-12-27)
DX: N94.6 Dysmenorrhea, unspecified (principal)
CPT/HCPCS: 36415; 80053; 81003; 84703; 85025; 87086; 93005; 93010; 99284-25; J0131

== ENCOUNTER 2021-05-01 11:48 | Emergency (ER) | payer OTHER ==
[2021-05-01 12:13] VITALS: TEMP 98.4; BMI 24.7
[2021-05-01] MEDS ORDERED: SODIUM CHLORIDE 0.9% 500 ML INFUS.BAG IV ONE (13:33)
[2021-05-01] MEDS ORDERED: KETOROLAC TROMETHAMINE 30 MG/1 ML VIAL IVPUSH ONE (13:33)
[2021-05-01] MEDS ORDERED: KETOROLAC TROMETHAMINE 30 MG/1 ML VIAL ONE (13:55)
[2021-05-01 14:24] LABS: BASO % 0.6 % (0-2.0); EOS % 0.7 % (0-4.5); HEMATOCRIT 35.9 % (32.4-45.2); HEMOGLOBIN 11.9 GM/dL (10.7-15.3); LYMPH % 22.4 % (8-40); MCH 28.1 pg (25.7-33.7); MCHC 33.2 g/dl (32.0-36.0); MEAN CELL VOLUME 84.6 fl (80-96); MEAN PLT VOLUME 8.3 fl (7.5-11.1); MONO % 9.7 % (3.8-10.2); NEUT % 66.6 % (42.8-82.8); PLATELET COUNT 313 10^3/uL (134-434); RBC 4.24 M/mm3 (3.60-5.2); RDW 17.3 % (11.6-15.6)
[2021-05-01 14:31] LABS: EPI CELLS 20 /uL (0-25.1); HCG,QUALITATIVE URINE Negative; HYALINE CASTS 5 /uL (0-3.1); URINE APPEARANCE CLEAR; URINE BACTERIA 348 /uL (0-1359); URINE BILIRUBIN NEGATIVE (NEGATIVE); URINE COLOR YELLOW; URINE GLUCOSE (UA) NEGATIVE (NEGATIVE); URINE KETONE NEGATIVE (NEGATIVE); URINE LEUK ESTERASE 2+ (NEGATIVE); URINE NITRITE NEGATIVE (NEGATIVE); URINE PROTEIN NEGATIVE (NEGATIVE); URINE RBC 26 /uL (0-23.9); URINE UROBILINOGEN 0.2 mg/dL (0.2-1.0); URINE WBC 307 /uL (0-25.8)
[2021-05-01 14:55] LABS: CHLORIDE 106 mmol/L (98-107); SODIUM 135 mmol/L (136-145)
[2021-05-01 15:00] LABS: ALBUMIN 3.6 g/dl (3.4-5.0); BLOOD UREA NITROGEN 9.5 mg/dL (7-18); CALCIUM 9.5 mg/dL (8.5-10.1); CO2 30 mmol/L (21-32); GLUCOSE,RANDOM 78 mg/dL (74-106)
[2021-05-01 15:03] LABS: CREATININE 0.7 mg/dL (0.55-1.3); SGOT/AST 77 U/L (15-37)
[2021-05-01 15:05] LABS: BILIRUBIN,TOTAL 0.4 mg/dL (0.2-1); TOT PROT 9.1 g/dl (6.4-8.2)
[2021-05-01 15:10] LABS: ALK PHOS 105 U/L (45-117)
[2021-05-01 15:12] LABS: ANION GAP -1 MMOL/L (8-16); SGPT/ALT 26 U/L (13-61)
[2021-05-01] MEDS ORDERED: SULFAMETHOXAZOLE/TRIMETHOPRIM 800MG/160MG D.S. TABLET PO ONE (15:54)
[2021-05-01] MEDS ORDERED: SULFAMETHOXAZOLE/TRIMETHOPRIM 800MG/160MG D.S. TABLET ONE (15:55)
[2021-05-01 16:39] VITALS: BP 119/67; PULSE 73
== END 2021-05-01 16:39 | disposition home or self-care (01) ==
LOC: JERFT 11:48
PROC: 3E0333Z Introduction of Anti-inflammatory into Peripheral Vein, Percutaneous Approach (ICD-10-PCS; principal; 2021-05-01)
DX: N30.00 Acute cystitis without hematuria (principal)
CPT/HCPCS: 36415; 76705-TC; 80053; 81003; 84132; 84703; 85025; 87086; 87186; 99284-25

== ENCOUNTER 2021-08-24 09:02 | Emergency (ER) | payer OTHER ==
[2021-08-24 09:13] VITALS: TEMP 97.1; BMI 22.3
[2021-08-24] MEDS ORDERED: KETOROLAC TROMETHAMINE 30 MG/1 ML VIAL IVPUSH ONE (10:22)
[2021-08-24] MEDS ORDERED: METOCLOPRAMIDE HCL INJECTION 10 MG/2 ML VIAL IVPUSH ONE (10:22)
[2021-08-24] MEDS ORDERED: SODIUM CHLORIDE 1,000 ML IV STA (10:24)
[2021-08-24] MEDS ORDERED: KETOROLAC TROMETHAMINE 30 MG/1 ML VIAL ONE (10:32)
[2021-08-24] MEDS ORDERED: METOCLOPRAMIDE HCL INJECTION 10 MG/2 ML VIAL ONE (10:32)
[2021-08-24 12:55] VITALS: BP 121/75; PULSE 64
== END 2021-08-24 12:55 | disposition home or self-care (01) ==
LOC: JER 09:02
PROC: 3E033GC Introduction of Other Therapeutic Substance into Peripheral Vein, Percutaneous Approach (ICD-10-PCS; principal; 2021-08-24)
DX: G43.909 Migraine, unspecified, not intractable, without status migrainosus (principal)
CPT/HCPCS: 96361; 96374; 96375; 99284-25

== ENCOUNTER 2021-11-12 23:21 | Emergency (ER) | payer OTHER ==
[2021-11-12 23:25] VITALS: TEMP 98.3; BMI 21.4
[2021-11-12] MEDS ORDERED: DEXAMETHASONE SOD PHOSPHATE 10 MG/1 ML VIAL IVPUSH ONE (23:31)
[2021-11-12] MEDS ORDERED: EPINEPHrine 1:1,000 1,000 MCG/ML ML SQ ONE (23:31)
[2021-11-12] MEDS ORDERED: DEXAMETHASONE SOD PHOSPHATE 10 MG/1 ML VIAL ONE (23:32)
[2021-11-12] MEDS ORDERED: EPINEPHrine/PF 1 MG/1 ML (1:1,000) AMPULE ONE (23:32)
[2021-11-13 01:05] VITALS: BP 120/68; PULSE 76
== END 2021-11-13 01:23 | disposition home or self-care (01) ==
LOC: JER 23:21
PROC: 3E033GC Introduction of Other Therapeutic Substance into Peripheral Vein, Percutaneous Approach (ICD-10-PCS; principal; 2021-11-12)
PROC: 3E023GC Introduction of Other Therapeutic Substance into Muscle, Percutaneous Approach (ICD-10-PCS; principal; 2021-11-12)
DX: T78.2XXA Anaphylactic shock, unspecified, initial encounter (principal)
CPT/HCPCS: 99284-25; J1100

== ENCOUNTER 2022-02-19 09:47 | Emergency (ER) | payer OTHER ==
[2022-02-19 09:53] VITALS: BP 111/70; PULSE 72; RESP 17; TEMP 97.8; BMI 21.6
[2022-02-19] MEDS ORDERED: MAG HYDROX/AL HYDROX/SIMETH -MYLANTA- ORAL SUSPENSION PO ONE (11:26)
[2022-02-19] MEDS ORDERED: FAMOTIDINE 20 MG/50 ML IVPB 20 MG/50 ML MG IVPB ONE ×2 (11:26→11:55)
[2022-02-19] MEDS ORDERED: SODIUM CHLORIDE 0.9% 500 ML INFUS.BAG IV ONE (11:26)
[2022-02-19] MEDS ORDERED: MAG HYDROX/AL HYDROX/SIMETH 30 ML UNIT-DOSE CUP ONE (11:58)
[2022-02-19 12:42] LABS: BASO % 0.8 % (0-2.0); EOS % 3.9 % (0-4.5); HEMATOCRIT 30.7 % (32.4-45.2); HEMOGLOBIN 10.1 GM/dL (10.7-15.3); LYMPH % 28.5 % (8-40); MCH 26.1 pg (25.7-33.7); MCHC 32.9 g/dl (32.0-36.0); MEAN CELL VOLUME 79.4 fl (80-96); MEAN PLT VOLUME 7.8 fl (7.5-11.1); MONO % 17.2 % (3.8-10.2); NEUT % 49.6 % (42.8-82.8); PLATELET COUNT 268 10^3/uL (134-434); RBC 3.87 M/mm3 (3.60-5.2); RDW 17.1 % (11.6-15.6); WHITE BLOOD COUNT 5.4 K/mm3 (4.0-10.0)
[2022-02-19 12:43] LABS: EPI CELLS >36 /uL (0-25.1); HYALINE CASTS 3 /uL (0-3.1); PH,URINE 5.5 (5.0-8.0); URINE APPEARANCE CLOUDY; URINE BACTERIA 635 /uL (0-1359); URINE BILIRUBIN NEGATIVE (NEGATIVE); URINE COLOR YELLOW; URINE GLUCOSE (UA) NEGATIVE (NEGATIVE); URINE KETONE NEGATIVE (NEGATIVE); URINE LEUK ESTERASE 2+ (NEGATIVE); URINE NITRITE NEGATIVE (NEGATIVE); URINE PROTEIN NEGATIVE (NEGATIVE); URINE RBC 7 /uL (0-23.9); URINE UROBILINOGEN 0.2 mg/dL (0.2-1.0); URINE WBC 109 /uL (0-25.8)
[2022-02-19 12:44] LABS: HCG,QUALITATIVE URINE Negative
[2022-02-19 13:12] LABS: CALCIUM 8.5 mg/dL (8.5-10.1)
[2022-02-19 13:13] LABS: ALBUMIN 3.6 g/dl (3.4-5.0); BLOOD UREA NITROGEN 7.7 mg/dL (7-18)
[2022-02-19 13:16] LABS: CREATININE 0.5 mg/dL (0.55-1.3)
[2022-02-19 13:18] LABS: BILIRUBIN,TOTAL 0.4 mg/dL (0.2-1); TOT PROT 7.8 g/dl (6.4-8.2)
== END 2022-02-19 16:02 | disposition home or self-care (01) ==
LOC: JER 09:47 → JERFT 09:47
PROC: 3E033NZ Introduction of Analgesics, Hypnotics, Sedatives into Peripheral Vein, Percutaneous Approach (ICD-10-PCS; principal; 2022-02-19)
DX: R10.13 Epigastric pain (principal)
CPT/HCPCS: 36415; 76705-TC; 80053; 81003; 83690; 84703; 85025; 87077; 87086; 87651; 93005; 93010; 99284-25

== ENCOUNTER 2022-03-22 00:18 | Emergency (ER) | payer OTHER ==
[2022-03-22 00:25] VITALS: BP 104/67; PULSE 62; RESP 18; TEMP 97.4; BMI 21.4
[2022-03-22] MEDS ORDERED: MAG HYDROX/AL HYDROX/SIMETH 30 ML UNIT-DOSE CUP PO ONE (01:02)
[2022-03-22] MEDS ORDERED: FAMOTIDINE 20 MG TABLET PO ONE (01:02)
[2022-03-22] MEDS ORDERED: FAMOTIDINE 20 MG TABLET ONE ×2 (01:27→01:32)
[2022-03-22] MEDS ORDERED: MAG HYDROX/AL HYDROX/SIMETH 30 ML UNIT-DOSE CUP ONE (01:28)
[2022-03-22 02:01] LABS: URINE APPEARANCE CLOUDY; URINE BILIRUBIN NEGATIVE (NEGATIVE); URINE COLOR YELLOW; URINE GLUCOSE (UA) NEGATIVE (NEGATIVE); URINE KETONE NEGATIVE (NEGATIVE); URINE LEUK ESTERASE NEGATIVE (NEGATIVE); URINE NITRITE NEGATIVE (NEGATIVE); URINE PROTEIN NEGATIVE (NEGATIVE); URINE UROBILINOGEN 0.2 mg/dL (0.2-1.0)
[2022-03-22 02:03] LABS: HCG,QUALITATIVE URINE Negative
== END 2022-03-22 03:10 | disposition home or self-care (01) ==
LOC: JER 00:18
DX: R10.13 Epigastric pain (principal)
CPT/HCPCS: 81003; 84703; 93005; 93010; 99284-25

== ENCOUNTER 2022-06-11 21:53 | Emergency (ER) | payer OTHER ==
[2022-06-11 22:05] VITALS: BP 137/84; PULSE 69; RESP 18; TEMP 97.7; BMI 21.4
[2022-06-12 00:39] LABS: URINE APPEARANCE CLEAR; URINE BILIRUBIN NEGATIVE (NEGATIVE); URINE COLOR YELLOW; URINE GLUCOSE (UA) NEGATIVE (NEGATIVE); URINE KETONE NEGATIVE (NEGATIVE); URINE LEUK ESTERASE NEGATIVE (NEGATIVE); URINE NITRITE NEGATIVE (NEGATIVE); URINE PROTEIN NEGATIVE (NEGATIVE); URINE UROBILINOGEN 0.2 mg/dL (0.2-1.0)
[2022-06-12 01:14] LABS: HCG,QUALITATIVE URINE Negative
[2022-06-12 02:00] LABS: BASO % 0.7 % (0-2.0); EOS % 1.3 % (0-4.5); HEMATOCRIT 35.9 % (32.4-45.2); HEMOGLOBIN 11.1 GM/dL (10.7-15.3); LYMPH % 47.5 % (8-40); MCH 27.7 pg (25.7-33.7); MEAN CELL VOLUME 89.4 fl (80-96); MEAN PLT VOLUME 8.9 fl (7.5-11.1); MONO % 11.5 % (3.8-10.2); PLATELET COUNT 233 10^3/uL (134-434); RBC 4.01 M/mm3 (3.60-5.2); RDW 16.1 % (11.6-15.6); WHITE BLOOD COUNT 7.4 K/mm3 (4.0-10.0)
[2022-06-12 02:27] LABS: INR 1.09 (0.83-1.09); PROTHROMBIN TIME (PATIENT) 12.6 SEC (9.7-13.0)
[2022-06-12 02:30] LABS: ACTIVATED PTT 28.5 SECONDS (25.2-36.5)
[2022-06-12 02:49] LABS: ALBUMIN 3.6 g/dl (3.4-5.0); BLOOD UREA NITROGEN 8.1 mg/dL (7-18); CALCIUM 8.6 mg/dL (8.5-10.1)
[2022-06-12 02:52] LABS: CREATININE 0.7 mg/dL (0.55-1.3)
[2022-06-12 02:54] LABS: BILIRUBIN,TOTAL 0.3 mg/dL (0.2-1); TOT PROT 7.8 g/dl (6.4-8.2)
[2022-06-12] MEDS ORDERED: ONDANSETRON 4 MG/2 ML VIAL IVPUSH ONE (03:19)
[2022-06-12] MEDS ORDERED: KETOROLAC TROMETHAMINE 15 MG/ML VIAL IVPUSH ONE (03:19)
[2022-06-12] MEDS ORDERED: ONDANSETRON 4 MG/2 ML VIAL ONE (03:37)
[2022-06-12] MEDS ORDERED: KETOROLAC TROMETHAMINE 15 MG/ML VIAL ONE (03:37)
== END 2022-06-12 03:50 | disposition home or self-care (01) ==
LOC: JER 21:53
PROC: 3E033GC Introduction of Other Therapeutic Substance into Peripheral Vein, Percutaneous Approach (ICD-10-PCS; principal; 2022-06-11)
DX: R10.30 Lower abdominal pain, unspecified (principal)
CPT/HCPCS: 0241U-QW; 36415; 76830-TC; 80053; 81003; 83690; 84703; 85025; 85610; 85730; 86850; 86900; 86901; 87077; 87086; 93005; 93010; 99285-25

== ENCOUNTER 2022-08-15 13:22 | Emergency (ER) | payer OTHER ==
[2022-08-15 13:56] VITALS: BP 104/70; PULSE 74; RESP 18; TEMP 98.5; BMI 22.1
== END 2022-08-15 16:32 | disposition left against medical advice (07) ==
LOC: JER 13:22
DX: R11.2 Nausea with vomiting, unspecified (principal); R10.32 Left lower quadrant pain
CPT/HCPCS: 99281-25

== ENCOUNTER 2023-02-09 12:05 | Inpatient (IN) | payer OTHER ==
[2023-02-09] MEDS ORDERED: BETAMET ACET/BETAMET NA PH 30 MG/5 ML VIAL IM ONE (13:30)
[2023-02-09 13:31] LABS: HEMATOCRIT 37.8 % (32.4-45.2); HEMOGLOBIN 12.3 GM/dL (10.7-15.3); MCH 33.4 pg (25.7-33.7); MCHC 32.5 g/dl (32.0-36.0); MEAN CELL VOLUME 102.8 fl (80-96); PLATELET COUNT 225 10^3/uL (134-434); RBC 3.68 M/mm3 (3.60-5.2); RDW 14.3 % (11.6-15.6); WHITE BLOOD COUNT 10.3 K/mm3 (4.0-10.0)
[2023-02-09 13:43] LABS: CREATININE, URINE RANDOM < 13.0 mg/dL (30-150)
[2023-02-09] MEDS ORDERED: BETAMET ACET/BETAMET NA PH 30 MG/5 ML VIAL ONE (13:48)
[2023-02-09 13:51] VITALS: RESP 18
[2023-02-09 14:05] LABS: POTASSIUM 4.2 mmol/L (3.5-5.1)
[2023-02-09 14:07] LABS: ALBUMIN 2.6 g/dl (3.4-5.0); BLOOD UREA NITROGEN 8.8 mg/dL (7-18); CALCIUM 8.8 mg/dL (8.5-10.1)
[2023-02-09 14:10] LABS: URIC ACID 4.4 mg/dL (2.6-7.2)
[2023-02-09 14:11] LABS: CREATININE 0.6 mg/dL (0.55-1.3)
[2023-02-09 14:12] LABS: BILIRUBIN,TOTAL 0.1 mg/dL (0.2-1); TOT PROT 6.6 g/dl (6.4-8.2)
[2023-02-09 14:32] VITALS: BMI 27.8
[2023-02-09 15:45] VITALS: BP 134/85; PULSE 68; TEMP 97.9
== END 2023-02-09 15:45 | disposition short-term general hospital (02) | DRG 566 ==
LOC: JDEL 12:05 → JLDR 13:30
PROVIDERS: ADMIT Obstetrics & Gynecology; ATTEND Obstetrics & Gynecology
DX: O36.5930 Maternal care for other known or suspected poor fetal growth, third trimester, not applicable or unspecified (principal); Z3A.29 29 weeks gestation of pregnancy
CPT/HCPCS: 36415; 59025; 80053; 82570; 84156; 84550; 85027; 87635; 96372

== ENCOUNTER 2023-04-27 20:14 | Emergency (ER) | payer OTHER ==
[2023-04-27 20:29] VITALS: BP 105/66; PULSE 71; RESP 18; TEMP 98.1; BMI 20.3
[2023-04-27] MEDS ORDERED: ACETAMINOPHEN 500 MG TABLET (FP) PO ONE (20:59)
[2023-04-27] MEDS ORDERED: ACETAMINOPHEN 325 MG TABLET (FP) ONE (21:02)
[2023-04-27 21:26] LABS: HCG,QUALITATIVE URINE Negative
[2023-04-27 21:31] LABS: EPI CELLS 27 /uL (0-25.1); HYALINE CASTS 0 /uL (0-3.1); PH,URINE 5.5 (5.0-8.0); URINE APPEARANCE CLEAR; URINE BACTERIA 381 /uL (0-1359); URINE BILIRUBIN NEGATIVE (NEGATIVE); URINE COLOR YELLOW; URINE GLUCOSE (UA) NEGATIVE (NEGATIVE); URINE KETONE NEGATIVE (NEGATIVE); URINE LEUK ESTERASE 1+ (NEGATIVE); URINE NITRITE NEGATIVE (NEGATIVE); URINE PROTEIN NEGATIVE (NEGATIVE); URINE RBC 7 /uL (0-23.9); URINE UROBILINOGEN 0.2 mg/dL (0.2-1.0); URINE WBC 120 /uL (0-25.8)
== END 2023-04-28 01:43 | disposition home or self-care (01) ==
LOC: JER 20:14
DX: R10.30 Lower abdominal pain, unspecified (principal); N39.0 Urinary tract infection, site not specified
CPT/HCPCS: 76830-TC; 81003; 84703; 87077; 87086; 99284-25